=== PATIENT | male | born 1985 | race Caucasian/White ===

== ENCOUNTER 2017-04-18 20:52 | Emergency (ER) | payer BC, OTHER ==
--- NOTE | 2017-04-18 21:09 | EDM.PDOC ---
ED HPI GENERAL MEDICAL PROBLEM - General Chief Complaint: Upper Extremity Injury/Pain Stated Complaint: RIGHT WRIST PAIN Time Seen by Provider: 04/18/17 21:04 Source of Information: Reports: Patient History Limitations: Reports: No Limitations - History of Present Illness INITIAL COMMENTS - FREE TEXT/NARRATIVE: HISTORY AND PHYSICAL: []31-year-old male who presents with left forearm pain History of Present Illness: []He said this pain has been present for the last several months he works out a lot and thinks he is a stress fracture He takes trazodone at night to sleep Review of Systems: As per history of present illness and below otherwise all systems reviewed and negative. Past medical history: As per history of present illness and as reviewed below otherwise noncontributory. Surgical history: As per history of present illness and as reviewed below otherwise noncontributory. Social history: No reported history of drug or alcohol abuse. Family history: As per history of present illness and as reviewed below otherwise noncontributory. Physical exam: Alert and oriented gentleman speaking in full sentences without any shortness of breath HEENT: Atraumatic, normocehpalic, pupils reactive, negative for conjunctival pallor or scleral icterus, mucous membranes moist, throat clear, neck supple, nontender, trachea midline. Lungs: Clear to auscultation, breath sounds equal bilaterally, chest non tender. Heart: S1S2, regular, negative for clicks, rubs, or JVD. Abdomen: Soft, nondistended, nontender. Negative for masses or hepatossplenmegaly. Negative for costovertebral tenderness. Pelvis: Stable nontender. Genitourinary: Deferred. Rectal: Deferred Extremities: Atraumatic, negative for cords or calf pain. Good radial pulse. Tender midshaft medially left forearm. Capillary Refill is less than 2 seconds Neurovascular unremarkable. Neuro: Awake, alert, oriented. Cranial nerves II through XII unremarkable. Cerebellum unremarkable. Motor and sensory unremarkable throughout. Exam nonfocal. Prescription the patient there is no dislocation no fracture no bony structure abnormalities noted on x-rays Diagnostics: [X-ray left forearm x-ray left wrist] Therapeutics: [Ice] Impression: []Ligamental strain/reason injury Plan: [Discharged to home Decrease your level of activity for some time until pain improves Suggest chadd wrap patient states he has one at home Ibuprofen 3-4 tablets 3 times a day with food Recommended referral to Dr. Heather Carmichael patient has declined this referral Definitive disposition and diagnosis as appropriate pending reevaluation and review of above. Onset: Gradual Duration: Week(s):, Chronic Location: Reports: Upper Extremity, Left Quality: Reports: Ache Severity: Moderate Left Wrist Pain Score (Numeric/FACES): 8 - Related Data Allergies Allergy/AdvReac Type Severity Reaction Status Date / Time pollen extracts Allergy Itching Verified 04/18/17 21:07 Home Meds: Home Meds traZODone HCl [Trazodone HCl] 100 mg PO DAILY 04/18/17 [History] Review of Systems - Review of Systems Review Of Systems: ROS reveals no pertinent complaints other than HPI. ED EXAM, GENERAL - Physical Exam Exam: See Below (See Dictation) Course - Vital Signs Last Recorded V/S: Last Vital Signs Temp 37.0 C 04/18/17 20:55 Pulse 63 04/18/17 20:55 Resp 18 04/18/17 20:55 BP 149/95 H 04/18/17 20:55 Pulse Ox 95 04/18/17 20:55 - Orders/Labs/Meds Orders: Active Orders 24 hr Category Date Time Status Forearm 2V Lt [CR] Stat Exams 04/18/17 21:09 Taken Wrist 2V Lt [CR] Stat Exams 04/18/17 21:09 Taken Departure - Departure Time of Disposition: 21:54 Disposition: Home, Self-Care 01 Condition: Good Clinical Impression: Tendinitis of left forearm - Discharge Information Instructions: Tendinitis, Tuct-dy-Tini Referrals: PCP,None [Primary Care Provider] - Forms: ED Department Discharge Additional Instructions: The following information is given to patients seen in the emergency department who are being discharged to home. This information is to outline your options for follow-up care. We provide all patients seen in our emergency department with a follow-up referral. The need for follow-up, as well as the timing and circumstances, are variable depending upon the specifics of your emergency department visit. If you don't have a primary care physician on staff, we will provide you with a referral. We always advise you to contact your personal physician following an emergency department visit to inform them of the circumstance of the visit and for follow-up with them and/or the need for any referrals to a consulting specialist. The emergency department will also refer you to a specialist when appropriate. This referral assures that you have the opportunity for followup care with a specialist. All of these measure are taken in an effort to provide you with optimal care, which includes your followup. Under all circumstances we always encourage you to contact your private physician who remains a resource for coordinating your care. When calling for followup care, please make the office aware that this follow-up is from your recent emergency room visit. If for any reason you are refused follow-up, please contact the [facility] emergency department at and asked to speak to the emergency department charge nurse. For overuse injuries would recommend that she utilize Tylenol [id number] in addition to ibuprofen Ice for discomfort Reduce the amount of weight lifting that you are doing with that arm Recommend referral to Dr. Heather Carmichael specialist physicians [facility] [address], [address] [place] [address] - My Orders Last 24 Hours: My Active Orders 04/18/17 21:09 Forearm 2V Lt [CR] Stat Wrist 2V Lt [CR] Stat - Assessment/Plan Last 24 Hours: My Active Orders 04/18/17 21:09 Forearm 2V Lt [CR] Stat Wrist 2V Lt [CR] Stat
--- NOTE | 2017-04-19 15:37 | CR ---
EXAM DATE: 04/18/17 PATIENT'S AGE: 31 Patient: MIKAL BARDALES Facility: [place], [place] Site . Site : 1985 Study: XRay Extremity wrist [id number]/7/2017 9:32:08 PM Ordering Physician: Doctor Ojeda Final Report: Indication: Pain. Technique: Left wrist two views. Comparison: None. Findings: No acute fracture or dislocation. No additional osseous abnormality. Soft tissues as imaged are unremarkable. Impression: No acute osseous abnormality. Dictated by Phillip Herring MD @ 04/18/2017 9:51:24 PM Dictated by: Phillip Herring MD @ 04/18/2017 21:51:28 (Electronic Signature) Report Signed by Proxy. ROBERTO CARLOS
--- NOTE | 2017-04-19 15:38 | CR ---
EXAM DATE: 04/18/17 PATIENT'S AGE: 31 Patient: MIKAL BARDALES Facility: [place], [place] Site . Site : 1985 Study: XRay Extremity forearm [id number]/7/2017 9:33:14 PM Ordering Physician: Doctor Ojeda Final Report: Indication: Pain from repetitive motion from weight lifting. Technique: Left forearm two views. Comparison: None. Findings: No acute fracture or dislocation. No additional osseous abnormality. Soft tissues as imaged are unremarkable. Impression: No acute osseous abnormality. Dictated by Phillip Herring MD @ 04/18/2017 9:50:14 PM Dictated by: Phillip Herring MD @ 04/18/2017 21:50:20 (Electronic Signature) Report Signed by Proxy. [facility] CENTERRosalind
== END 2017-04-18 22:00 | disposition home or self-care (01) ==
LOC: MW.ED 20:52
DX: M77.9 Enthesopathy, unspecified (principal); Z79.899 Other long term (current) drug therapy; Z91.048 Other nonmedicinal substance allergy status
CPT/HCPCS: 73090-26-LT; 73090-LT; 73100-26-LT; 73100-LT; 99283